=== PATIENT | female | born 1995 | race Caucasian/White ===

== ENCOUNTER 2017-06-05 14:35 | Outpatient (CLI) | payer OTHER ==
[~2017-06-05 14:35] MED LIST: HYDROCODON-ACE1 EAC7 PO; HYDROXYZINE PAM50 MG PO; IBUPROFEN800 MG PO; MOTRIN IB200 MG PO; MOTRIN800 MG PO; NAPROSYN500 MG PO; NAPROXEN500 MG PO; ONDANSETRON4 MG/2 ML IV; PERCOCET 5/31 TABLET PO; PRENATAL TABLE1 EAC3 PO; TRAMADOL HCL50 MG PO; TYLENOL WITH C1 EACH PO; ULTRACET1 TABLET PO; VALIUM5 MG PO; ZOFRAN ODT4 MG PO; ZOFRAN ODT8 MG PO; ZOFRAN4 MG PO; ZOLPIDEM TARTRAT5 MG PO
[2017-06-05 14:55] VITALS: BP 112/64
== END 2017-06-05 18:07 | disposition home or self-care (01) ==
LOC: LDRP-OP 14:35 → 2WEST 14:36
DX: O9A.213 Injury, poisoning and certain other consequences of external causes complicating pregnancy, third trimester (principal); Z3A.37 37 weeks gestation of pregnancy; W18.30XA Fall on same level, unspecified, initial encounter; Y93.01 Activity, walking, marching and hiking
CPT/HCPCS: 59025; G0378

== ENCOUNTER 2017-06-11 11:57 | Outpatient (CLI) | payer OTHER ==
[~2017-06-11] VITALS: Ht 160 cm; Wt 90.9 kg
[2017-06-11 12:09] VITALS: BP 135/70
[2017-06-11] MEDS ORDERED: PRENATAL TABLE1 EAC3 PO (12:28)
== END 2017-06-11 13:18 | disposition home or self-care (01) ==
LOC: LDRP-OP 11:57 → 2WEST 11:58 → LDRP-OP 07-24 18:26
DX: O47.1 False labor at or after 37 completed weeks of gestation (principal); Z3A.38 38 weeks gestation of pregnancy
CPT/HCPCS: 59025; G0378

== ENCOUNTER 2017-06-14 22:07 | Outpatient (CLI) | payer OTHER ==
[2017-06-14 22:35] VITALS: BP 109/68
== END 2017-06-14 23:40 | disposition home or self-care (01) ==
LOC: LDRP-OP 22:07 → 2WEST 22:08 → LDRP-OP 07-24 13:36
DX: O47.1 False labor at or after 37 completed weeks of gestation (principal); Z3A.38 38 weeks gestation of pregnancy; K82.4 Cholesterolosis of gallbladder
CPT/HCPCS: 59025; G0378

== ENCOUNTER 2017-06-17 17:01 | Outpatient (CLI) | payer OTHER ==
[2017-06-17 17:21] VITALS: BP 124/71
== END 2017-06-17 18:15 | disposition home or self-care (01) ==
LOC: LDRP-OP 17:01 → 2WEST 17:02 → LDRP-OP 07-24 00:17
DX: O47.1 False labor at or after 37 completed weeks of gestation (principal); Z3A.39 39 weeks gestation of pregnancy; O99.213 Obesity complicating pregnancy, third trimester; O35.8XX0 Maternal care for other (suspected) fetal abnormality and damage, not applicable or unspecified
CPT/HCPCS: 59025; G0378

== ENCOUNTER 2017-06-20 06:39 | Inpatient (IN) | payer OTHER ==
[2017-06-20] VITALS (20 sets, daily range): BP systolic 102–146; BP diastolic 55–81
[~2017-06-20] VITALS: Ht 160 cm; Wt 90.7 kg
[2017-06-20 10:18] LABS: EOSINOPHIL (%) 0.3 % (0-5); HEMATOCRIT 34.1 % (36.0-46.0); IMMATURE GRANULOCYTE (%) 0.8 % (0.0-0.7); IMMATURE GRANULOCYTE COUNT 0.1 K/uL; LYMPHOCYTE COUNT 2.1 K/uL (1.0-2.8); MCH 26.9 PG (29.0-34.0); MCHC 31.4 G/DL (30.0-36.0); MCV 85.7 FL (83-99); MEAN PLAT.VOLUME 12.2 uM^3 (9.5-12.4); MONOCYTE (%) 4.8 % (3-12); MONOCYTE COUNT 0.3 K/uL (0-0.8); NEUTROPHIL (%) 61.1 % (45-76); PLATELET COUNT 157 K/uL (156-360); RBC DIS.WIDTH-CV 14.7 % (11.8-14.6); RBC DIS.WIDTH-SD 45.1 % (39-53); RED BLOOD COUNT 3.98 M/uL (3.80-5.20); WHITE BLOOD COUNT 6.5 K/uL (4.1-10.2)
[2017-06-20 11:52] LABS: DRSB INTERNAL CONTROL PASS; PROBE CHECK PASS; SPECIMEN PROCESSING CONTROL PASS
[2017-06-20] MEDS ORDERED: MOTRIN800 MG PO (18:49)
[2017-06-21 07:24] VITALS: BP 103/58
[2017-06-21 14:41] VITALS: BP 117/69
[2017-06-21 23:00] VITALS: BP 102/59
== END 2017-06-22 16:19 | disposition home or self-care (01) | DRG 775 ==
LOC: LDRP-OP 06:39 → 2WEST 06:40 → LDRP-OP 07:21 → 2WEST 16:10 → LDRP-OP 07-24 18:21
PROVIDERS: Midwife
DX: O69.81X0 Labor and delivery complicated by cord around neck, without compression, not applicable or unspecified (principal); O99.214 Obesity complicating childbirth; E66.9 Obesity, unspecified; K82.4 Cholesterolosis of gallbladder; Z68.32 Body mass index [BMI] 32.0-32.9, adult; Z3A.39 39 weeks gestation of pregnancy; Z37.0 Single live birth
CPT/HCPCS: 85025; 87081; 87653; C1726; C1755; J3010; J7120